=== PATIENT | female | born 1965 | race Caucasian/White ===

== ENCOUNTER 2023-06-09 10:05 | Inpatient (IN) ==
[2023-06-09 10:19] VITALS: BMI 43.4
--- NOTE | 2023-06-09 10:44 | ED.ABDFE ---
HPI Time Seen Time Seen by Provider: 06/09/23 10:44 PCP Primary Care Physician: ROMEO Lee Doctors Chief Complaint Comments: 58 y/o female presents for evaluation. Having abdominal pain over the past 3-4 days. + sharp, severe, located RUQ/RLQ, r adiates to rest of abdomen. + worse with palpation, moving. Nothing makes it better. Denies fever, URI symptoms, urinary issues. + nausea, no vomiting or diarrhea. Has decreased appetite. + h/o pancreatitis/cholecystitis a year ago. Does not drink alcohol. Still has her GB. Chief Complaint:: PATIENT C/O EPIGASTRIC, RUQ, AND UMBILICAL PAIN. PATIENT STATES SHE HAS ALSO HAD SOME NAUSEA ASSOCIATED WITH THE PAIN. PATIENT STATES SHE HAS HAD A HISTORY OF PANCREATITIS AND CHOLECYSISITIS IN THE PAST AND THE PAIN FEELS IF IT IS THE SAME ISSUE. COVID-19 Coronavirus risk:travel/contact w/high risk person: No Has patient experienced Coronavirus symptoms: No Reviewed Nurses Notes Review: Yes Source History Provided: Patient Mode of arrival Mode of Arrival: Wheelchair Timing Onset of Chief Complaint: 06/06/23 PMH PMH Past Medical History: Yes Past Medical History: Anxiety, Arthritis, Depression, Diabetes, Migraines, GERD, Headaches, Hypertension and Seizures Past Surgical History: Yes Surgical History: Appendectomy Past Surgical History Comment: TUBALIGATION Family History History of Family Medical Conditions: Yes Family Medical History: Cancer and Hypertension Social History Does patient currently use any type of tobacco product: No Does any household member use tobacco: No Alcohol Use: None Do you use any recreational Drugs:: No Lives With: Family Lives Where: Home Travel Risk Coronavirus risk:travel/contact w/high risk person: No Has patient experienced Coronavirus symptoms: No Infectious screening In the last 2 months have you had wt loss of >10#?: NO Have you had fever, night sweats or hemotysis?: No Have you traveled outside the country in the last 6 months?: No Isolation: Standard ROS Review of Systems Constitutional: Weakness Eyes: No Symptoms Reported ENTM: No Symptoms Reported Respiratoy: No Symptoms Reported Cardiovascular: No Symptoms Reported Gastrointestinal/Abdominal: See HPI Genitourinary: No Symptoms Reported Neurological: Weakness Musculoskeletal: No Symptoms Reported Integumentary: No Symptoms Reported All Other Systems: Reviewed and Negative PE Vital Signs Vitals: Vital Signs Temperature 99.0 F Pulse Rate 84 Pulse Rate 85 Pulse Rate 89 Pulse Rate 82 Pulse Rate 84 Pulse Rate 81 Pulse Rate 85 Pulse Rate 86 Pulse Rate 90 Pulse Rate 90 Pulse Rate 96 Pulse Rate 93 Pulse Rate 108 Respiratory Rate 20 Respiratory Rate 20 Respiratory Rate 20 Respiratory Rate 20 Blood Pressure 115/55 Blood Pressure 112/59 Blood Pressure 109/57 Blood Pressure 130/60 Blood Pressure 122/67 Blood Pressure 138/86 O2 Sat by Pulse Oximetry 98 O2 Sat by Pulse Oximetry 98 O2 Sat by Pulse Oximetry 100 O2 Sat by Pulse Oximetry 97 O2 Sat by Pulse Oximetry 98 O2 Sat by Pulse Oximetry 97 O2 Sat by Pulse Oximetry 98 O2 Sat by Pulse Oximetry 94 O2 Sat by Pulse Oximetry 91 O2 Sat by Pulse Oximetry 94 O2 Sat by Pulse Oximetry 97 O2 Sat by Pulse Oximetry 92 O2 Sat by Pulse Oximetry 96 General General Appearance: Alert and In No Apparent Distress Eyes Eye exam: PERRL and EOMI ENT ENT Exam: Mucous Membranes Moist Neck Neck Exam: Normal Inspection and Full ROM Respiratory Respiratory Exam: Normal Lung Sounds Bilat; negative Accessory Muscle Use or Respiratory Distress Cardiovascular Cardiovascular Exam: Regular Rate, Normal Rhythm and Normal Heart Sounds Abdominal Exam Abdominal Exam: Normal Bowel Sounds, Soft and Tenderness (all quadrants, with guarding, no clear rebound. ) Back Back Exam: Normal Inspection; negative (R) CVA Tenderness or (L) CVA Tenderness Extremeties Extremities Exam: Normal Inspection and Full ROM; negative Edema Neurologic Neurological Exam: Alert, Oriented X3 and CN II-XII Intact; negative Motor Sensory Deficit Skin Skin Exam: Warm and Dry COURSE Treatment Treatment: 58 y/o female with several days of abdominal pain, w/u initiated. Pt given IV fluids, IV toradol/zofran/dilaudid. 1254 - labs acceptable except for elevated lipase, 1,074. CT abd/pelvis shows inflammation of the pancreas, c/w pnacreatitis. GB looks normal on this CT. Pt still in pain, given additional IV analgesia, IV fluids. Recommend admission for further treatment. Discussed with Dr Pablo, executive director contract shop, accepts the admission. Added a lipid profile, + elevated chol/TGs, possible cause ? [facility] Labs Reviewed 06/09/23 10:58 06/09/23 10:58 Laboratory: WBC 13.0 X10^3/uL (3.6-10.0) H 06/09/23 10:58 RBC 4.82 X10^6/uL (3.5-5.4) 06/09/23 10:58 Hgb 14.2 g/dL (12.0-16.0) 06/09/23 10:58 Hct 42.8 % (36.0-47.0) 06/09/23 10:58 MCV 88.8 fL (80.0-100.0) 06/09/23 10:58 MCH 29.4 pg (27.0-34.0) 06/09/23 10:58 MCHC 33.1 g/dL (33.0-35.0) 06/09/23 10:58 RDW 13.4 % (11.6-16.5) 06/09/23 10:58 Plt Count 368 X10^3/uL (150.0-450.0) 06/09/23 10:58 MPV 8.2 fL (7.4-11.0) 06/09/23 10:58 Neut % (Auto) 68.8 % (42.0-75.0) 06/09/23 10:58 Lymph % (Auto) 21.4 % (21.0-51.0) 06/09/23 10:58 [place] % (Auto) 7.8 % (0.0-13.0) 06/09/23 10:58 Eos % (Auto) 1.1 % (0.9-2.9) 06/09/23 10:58 Baso % (Auto) 0.9 % (0.2-1.0) 06/09/23 10:58 Neut # (Auto) 8.9 x10^3/uL (2.2-4.8) H 06/09/23 10:58 Lymph # (Auto) 2.8 X10^3/uL (1.3-2.9) 06/09/23 10:58 [place] # (Auto) 1.0 x10^3/uL (0.3-0.8) H 06/09/23 10:58 Eos # (Auto) 0.1 x10^3/uL (0.0-0.2) 06/09/23 10:58 Baso # (Auto) 0.1 X10^3/uL (0.0-0.1) 06/09/23 10:58 Absolute Nucleated RBC 0.0 /100WBC 06/09/23 10:58 Sodium 140 mmol/L (136-145) 06/09/23 10:58 Corrected Sodium 141 mmol/L (136-145) 06/09/23 10:58 Potassium 3.3 mmol/L (3.5-5.1) L 06/09/23 10:58 Chloride 100 mmol/L (98-107) 06/09/23 10:58 Carbon Dioxide 32.2 mmol/L (21-32) H 06/09/23 10:58 BUN 20 mg/dL (7-18) H 06/09/23 10:58 Creatinine 1.70 mg/dL (0.55-1.02) H 06/09/23 10:58 Est GFR (MDRD) Af Amer 40 (>60) L 06/09/23 10:58 Est GFR (MDRD) Non-Af 33 (>60) L 06/09/23 10:58 Glucose 134 mg/dL (65-99) H 06/09/23 10:58 Calcium 11.3 mg/dL (8.5-10.1) H 06/09/23 10:58 Corrected Calcium TNP 06/09/23 10:58 Total Bilirubin 0.50 mg/dL (0.2-1.0) 06/09/23 10:58 AST 18 Units/L (15-37) 06/09/23 10:58 ALT 21 Units/L (12-78) 06/09/23 10:58 Alkaline Phosphatase 92 Units/L (46-116) 06/09/23 10:58 Total Protein 7.8 g/dL (6.4-8.2) 06/09/23 10:58 Albumin 3.7 g/dL (3.4-5.0) 06/09/23 10:58 Globulin 4.1 g/dL (2.5-4.5) 06/09/23 10:58 Albumin/Globulin Ratio 0.9 Ratio (1.1-2.1) L 06/09/23 10:58 Triglycerides 325 mg/dL (0-150) H 06/09/23 10:58 Cholesterol 294 mg/dL (0-200) H 06/09/23 10:58 LDL Cholesterol, Calc 190 mg/dL (0-100) H 06/09/23 10:58 HDL Cholesterol 39 mg/dL (40-60) L 06/09/23 10:58 Cholesterol/HDL Ratio 7.5 (0.0-5.0) H 06/09/23 10:58 Lipase 1074 Units/L (73-393) H 06/09/23 10:58 Opioid Opioid Risk Tool Age (Pranav box if 16-45): No History of Preadolescent Sexual Abuse: No Total: 0 Total Score Risk Category: Low Risk Copyright: Ulices SHELLEY predicting aberrant behaviors Discharge Plan Diagnosis Discharge Problem: Acute pancreatitis Discharge Plan Patient Disposition: ADMITTED INPATIENT Condition: Stable Health Concerns: Post Hospitalization: new medications and changes needed to prevent readmission or further decline. Pt educated and given instructions on all concerns. Plan of Treatment: Continue with present treatment and follow up plan. Pt is to keep follow up appointment as instructed and take medications as ordered. Orders to Discharge Patient Discharge Orders: Transfer (Routine); Ordered 06/09/23 Ordered By: Jonathon Brand Follow ups/Referrals Follow ups/Referrals: TYSHAWN ACOSTA [Primary Care Provider] - 3 days
[2023-06-09] MEDS ORDERED: TORADOL 30 MG VIAL IVP ONE (10:46)
[2023-06-09] MEDS ORDERED: ZOFRAN INJ 4 MG VIAL IVP ONE (10:46)
[2023-06-09] MEDS ORDERED: NS 1,000 ML IV 1,000 ML IV ONE ×2 (10:46→12:53)
[2023-06-09] MEDS ORDERED: DILAUDID INJ IVP ONE ×2 (10:50→12:53)
[2023-06-09] MEDS ORDERED: NS 1,000 ML IV 1,000 ML ONE (10:51)
[2023-06-09] MEDS ORDERED: ZOFRAN INJ 4 MG VIAL ONE (10:51)
[2023-06-09] MEDS ORDERED: TORADOL 30 MG VIAL ONE (10:51)
[2023-06-09 11:06] LABS: BASOPHILS # (AUTO) 0.1 X10^3/uL (0.0-0.1); BASOPHILS % (AUTO) 0.9 % (0.2-1.0); EOSINOPHILS # (AUTO) 0.1 x10^3/uL (0.0-0.2); EOSINOPHILS % (AUTO) 1.1 % (0.9-2.9); HEMATOCRIT 42.8 % (36.0-47.0); HEMOGLOBIN 14.2 g/dL (12.0-16.0); LYMPHOCYTES # (AUTO) 2.8 X10^3/uL (1.3-2.9); LYMPHOCYTES % (AUTO) 21.4 % (21.0-51.0); MEAN CORPUSCULAR HEMOGLOBIN 29.4 pg (27.0-34.0); MEAN CORPUSCULAR HGB CONC 33.1 g/dL (33.0-35.0); MEAN CORPUSCULAR VOLUME 88.8 fL (80.0-100.0); MEAN PLATELET VOLUME 8.2 fL (7.4-11.0); MONOCYTES % (AUTO) 7.8 % (0.0-13.0); NEUTROPHILS # (AUTO) 8.9 x10^3/uL (2.2-4.8); NEUTROPHILS % (AUTO) 68.8 % (42.0-75.0); PLATELET COUNT 368 X10^3/uL (150.0-450.0); RED BLOOD COUNT 4.82 X10^6/uL (3.5-5.4); RED CELL DISTRIBUTION WIDTH 13.4 % (11.6-16.5)
[2023-06-09 11:22] LABS: ALANINE AMINOTRANSFERASE 21 Units/L (12-78); ALBUMIN 3.7 g/dL (3.4-5.0); ALKALINE PHOSPHATASE 92 Units/L (46-116); ASPARTATE AMINO TRANSFERASE 18 Units/L (15-37); BLOOD UREA NITROGEN 20 mg/dL (7-18); CALCIUM 11.3 mg/dL (8.5-10.1); CARBON DIOXIDE 32.2 mmol/L (21-32); CHLORIDE 100 mmol/L (98-107); COR NA(FOR HYPERGLY) 141 mmol/L (136-145); GLUCOSE 134 mg/dL (65-99); LIPASE 1074 Units/L (73-393); POTASSIUM 3.3 mmol/L (3.5-5.1); SODIUM 140 mmol/L (136-145); TOTAL PROTEIN 7.8 g/dL (6.4-8.2); eGFR NON BLACK RACES 33 (>60)
[2023-06-09] MEDS ORDERED: OMNIPAQUE 350 mg/mL 100 mL BTL 100 ML ONE (11:35)
[2023-06-09] MEDS ORDERED: DILAUDID INJ ONE (12:07)
--- NOTE | 2023-06-09 12:16 | CT ---
HISTORYRight upper quadrant, right lower quadrant painSTUDYCT abdomen pelvis with contrastTechnique: Axial post-contrast images with coronal and sagittal reformats. Dose reduction procedures were used with mA/kv adjusted for body size.COMPARISONNoneFINDINGSThe lung bases are clear. The liver, spleen, adrenal glands, are within normal limits. The tail and body of the pancreas appear normal. However there is moderately severe inflammatory change in the peripancreatic region involving predominantly the head of the pancreas. Peripancreatic fluid is present. Findings are suggestive of developing acute pancreatitis predominantly involving the head at this time. Alternatively this could represent a severe duodenitis with secondary changes in the area of the head of the pancreas. Chemical correlation is recommended to assess for acute pancreatitis. There is no evidence for pseudocyst, abscess, or pancreatic necrosis. Kidneys are unobstructed and without stones or masses. No ureteral calculi are identified. Abdominal aorta demonstrates mild calcific atherosclerotic change but is otherwise normal. No intraperitoneal or retroperitoneal lymphadenopathy of significance identified. Appendix not identified. There are no secondary signs of appendicitis present. There are no findings suggestive enteritis, colitis, or diverticulitis. Examination of the pelvis demonstrated no evidence for pelvic masses, pelvic fluid, or pelvic lymphadenopathy. No definite bladder abnormality identified. No lytic or blastic skeletal lesions of significance are identified.IMPRESSIONModerately severe inflammation in the area of the pancreatic head and duodenal C loop most suggestive of developing acute pancreatitis predominately involving the pancreatic head as the remainder of the pancreas appears normal. Alternatively this could represent a primary duodenitis with secondary involvement of the pancreatic head. Chemical correlation for acute pancreatitis is recommended.Electronically signed by: EVA TEJEDA (Jun 09, 2023 12:15:29)
[2023-06-09 13:08] LABS: CHOL/HDL RATIO 7.5 (0.0-5.0)
[2023-06-09] MEDS ORDERED: ZOFRAN INJ 4 MG VIAL IVP PRN (14:27)
[2023-06-09] MEDS ORDERED: TORADOL 15 MG VIAL IVP PRN (14:27)
[2023-06-09] MEDS ORDERED: CONSULT PHARMACY - POTASSIUM & MAGNESIUM XX SCH (14:27)
[2023-06-09] MEDS ORDERED: D5 1/2 NS 1,000 ML 1,000 ML IV SCH (14:27)
[2023-06-09] MEDS: PEPCID 20 MG VIAL 20 MG in NS 50 ML IV 50 ML IV SCH (15:03)
[2023-06-09] MEDS: D5 1/2 NS + KCL 20 MEQ/L 1,000 ML IV SCH ×2 (16:00→23:02)
[2023-06-09 23:50] LABS: BILIRUBIN,URINE NEGATIVE (NEGATIVE); BLOOD/HEMOGLOBIN,URINE NEGATIVE (NEGATIVE); GLUCOSE, URINE NEGATIVE (NEGATIVE); KETONES,URINE NEGATIVE (NEGATIVE); LEUKOCYTE ESTERASE ,URINE 1+ (NEGATIVE); NITRITES,URINE NEGATIVE (NEGATIVE); PROTEIN,URINE 2+ (NEGATIVE); UROBILINOGEN,URINE NORMAL (NORMAL)
[2023-06-09 23:57] LABS: APPEARANCE,URINE SLIGHTLY HAZY (CLEAR); COLOR,URINE DARK YELLOW (YELLOW)
[2023-06-09 23:59] LABS: BACTERIA,URINE TRACE /HPF (NEGATIVE); HYALINE CASTS, URINE RARE /LPF (NEGATIVE); RBC,URINE 0-2 /HPF (0-3); SQUAMOUS EPITHELIAL CELL,UR MODERATE /HPF (NEGATIVE)
[2023-06-10 05:08] LABS: BASOPHILS % (AUTO) 0.5 % (0.2-1.0); EOSINOPHILS # (AUTO) 0.2 x10^3/uL (0.0-0.2); EOSINOPHILS % (AUTO) 2.2 % (0.9-2.9); HEMATOCRIT 35.4 % (36.0-47.0); LYMPHOCYTES % (AUTO) 21.2 % (21.0-51.0); MEAN CORPUSCULAR HGB CONC 33.7 g/dL (33.0-35.0); MEAN CORPUSCULAR VOLUME 89.1 fL (80.0-100.0); MEAN PLATELET VOLUME 8.3 fL (7.4-11.0); MONOCYTES # (AUTO) 0.9 x10^3/uL (0.3-0.8); MONOCYTES % (AUTO) 9.2 % (0.0-13.0); NEUTROPHILS # (AUTO) 6.3 x10^3/uL (2.2-4.8); NEUTROPHILS % (AUTO) 66.9 % (42.0-75.0); PLATELET COUNT 230 X10^3/uL (150.0-450.0); RED BLOOD COUNT 3.97 X10^6/uL (3.5-5.4); RED CELL DISTRIBUTION WIDTH 13.5 % (11.6-16.5); WHITE BLOOD COUNT 9.5 X10^3/uL (3.6-10.0)
[2023-06-10 05:21] LABS: ALBUMIN 2.9 g/dL (3.4-5.0); CALCIUM 9.2 mg/dL (8.5-10.1); CARBON DIOXIDE 31.5 mmol/L (21-32); COR CA(FOR HYPOALB) 10.1 mg/dL (8.5-10.1); CREATININE 1.75 mg/dL (0.55-1.02); MAGNESIUM 1.8 mg/dL (2.0-2.9); POTASSIUM 3.7 mmol/L (3.5-5.1); TOTAL PROTEIN 6.2 g/dL (6.4-8.2)
[2023-06-10 05:30] LABS: HEMOGLOBIN 11.9 g/dL (12.0-16.0)
[2023-06-10] MEDS: D5 1/2 NS + KCL 20 MEQ/L 1,000 ML IV SCH (05:48)
[2023-06-10] MEDS ORDERED: CONSULT PHARMACY - POTASSIUM & MAGNESIUM XX SCH ×2 (06:00→07:00)
[2023-06-10] MEDS: D5 1/2 NS + KCL 20 MEQ/L 1,000 ML with MAGNESIUM SULFATE 50% INJ VIAL 1 G IV SCH ×6 (08:53→16:10)
[2023-06-10] MEDS: PEPCID 20 MG VIAL 20 MG in NS 50 ML IV 50 ML IV SCH (08:53)
[2023-06-10] MEDS ORDERED: MAG-OX TAB PO SCH (09:00)
[2023-06-10] MEDS ORDERED: K-DUR TAB 20 MEQ PO SCH (09:00)
[2023-06-10] MEDS ORDERED: IMITREX TAB PO PRN (09:31)
[2023-06-10] MEDS: DILANTIN CAP 100 MG EXT REL PO SCH (10:12)
[2023-06-10] MEDS: TRICOR TAB 48 MG PO SCH (10:13)
--- NOTE | 2023-06-10 12:55 | DR.H&P ---
H&P - History & Physical for Day of: H&P Date: 06/09/23 - Chief Complaint Chief Complaint: ABDOMINAL PAIN - History of Present Illness History of Present Illness: IS A 58 YEAR OLD PATIENT OF IN [place], [place]. SHE PRESENTED TO THE ER WITH COMPLAINTS OF SEVERE ABDOMINAL PAIN. SHE REPORTS THAT ABDOMINAL PAIN STARTED 3-4 DAYS PRIOR TO ARRIVAL. SHE DESCRIBES ABDOMINAL PAIN SHARP, CONSTANT, AND DIFFUSE, BUT WORSE ON THE RIGHT SIDE. PAIN IS WORSE WITH PALPATION AND MOVING. NOTHING MAKES HER PAIN BETTER. SHE DENIES FEVER, URI SX, URINARY ISSUES, VOMITING, OR DIARRHEA. SHE DOES ADMIT TO NAUSEA. HER PMH INCLUDES: ANXIETY, ARTHRITIS, DEPRESSION, DM II, MIGRAINES, GERD, HEADACHES, HTN, SEIZURES, APPENDECTOMY, TUBALIGATION. SHE ALSO ADMITS TO A HX OF PANCREATITIS AND CHOLECYSTITIS IN THE PAST AND FEELS IF THE PAIN IS THE SAME THOSE EPISODES. SHE DENIES USE OF ALCOHOL. ON ARRIVAL TO THE ER, HER VITALS WERE: 99.0-108-20-96%-138/86. LABS WERE OBTAINED. WBC 13.0, RBC 4.82, HGB 14.2, HCT 42.8, PLT COUNT 368, SODIUM 140, POTASSIUM 3.3, CHLORIDE 100, CARBON DIOXIDE 32.2, BUN 20, CREATININE 1.70, GLUCOSE 134, CALCIUM 11.3, AST 18, ALT 21, ALK PHOS 92, TOTAL PROTEIN 7.8, ALBUMIN 3.7, GLOBULIN 4.1, TRIGLYCERIDES 325 , CHOLESTEROL 294, LDL 190, HDL 39, CHOLESTEROL/HDL RATIO 7.5, LIPASE 1074, MAGNESIUM 1.9. URINALYSIS WAS OBTAINED AND IS UNREMARKABLE. AN ABDOMEN/PELVIS CT WITH CONTRAST WAS OBTAINED AND REVEALED: Moderately severe inflammation in the area of the pancreatic head and duodenal C loop most suggestive of developing acute pancreatitis predominately involving the pancreatic head as the remainder of the pancreas appears normal. Alternatively this could represent a primary duodenitis with secondary involvement of the pancreatic head. Chemical correlation for acute pancreatitis is recommended. IN THE ER, SHE WAS GIVEN NORMAL SALINE BOLUS X 2 LITERS, TORADOL 30MG IV X 1 DOSE, ZOFRAN 4MG IV X 1 DOSE, DILAUDID 1MG IV X 2 DOSES. SHE WAS ADMITTED TO THE HOSPITAL FOR FURTHER EVALUATION AND TREATMENT OF ACUTE PANCREATITIS. SHE WAS STARTED ON D51/2 NS WITH POTASSIUM AND MAGNESIUM AT 125 ML/HR, PEPCID 20MG IV DAILY, ZOFRAN 4MG IV Q4H PRN, DILAUDID 1MG IV Q4H PRN, TORADOL 15MG IV Q6H PRN, TRICOR 48MG DAILY. HER HOME MEDICATIONS OF CARBAMAZEPINE, PHENYTOIN, AND SUMATRIPTAN WERE RESUMED. OTHERWISE, WE PLAN TO FOLLOW UP WITH AM LABS AND CONTINUE TO MONITOR. TIME SPENT ON CLINICAL ASSESSMENT, REVIEWING LABS AND IMAGING, DECISION MAKING, AND DOCUMENTATION GREATER THAN 75 MINUTES. - Past Medical History Past Medical History: Hypertension, Diabetes, Depression, Anxiety, Seizures, GERD, Arthritis, Migraines, Headaches - Past Surgical History Surgical History: Appendectomy - Family History Family Medical History: Cancer, Hypertension - Social History Does patient currently use any type of tobacco product: No Have you used tobacco products in the last 12 months: No Type of Tobacco Use: None Does any household member use tobacco: No Alcohol Use: None Drug Use: None - Review of Systems Constitutional: No Symptoms Reported Eyes: No Symptoms Reported ENT: No Symptoms Reported Respiratory: No Symptoms Reported Cardiovascular: No Symptoms Reported Gastrointestinal: Nausea, Abdominal Pain. denies: Diarrhea, Constipation Genitourinary: No Symptoms Reported Musculoskeletal: No Symptoms Reported Skin: No Symptoms Reported Neurological: No Symptoms Reported - Physical Exam Vital Signs: Vital Signs Temperature 97.8 F Temperature 98.5 F Pulse Rate [Right Brachial] 98 Pulse Rate [Right Brachial] 99 Respiratory Rate 20 Respiratory Rate 20 Blood Pressure [Right Arm] 140/76 Blood Pressure [Right Arm] 176/89 O2 Sat by Pulse Oximetry 99 O2 Sat by Pulse Oximetry 98 Oriented: Normal Eyes: Normal Ear: Normal Nose: Normal Respiratory: Clear Throughout Cardiovascular: Normal : Normal Auscultation: Bowel Sounds: Normal Palpation: Normal Tenderness: Diffuse Skin: Normal Musculoskeletal: Normal Psychiatric: Normal Mood Description: Calm Affect: Normal Speech Pattern: Clear - Assessment/Plan (1) Acute pancreatitis Qualifiers: Pancreatitis type: unspecified pancreatitis type Acute pancreatitis complication: unspecified Qualified Code(s): K85.90 - Acute pancreatitis without necrosis or infection, unspecified Status: Acute Plan: ADMIT, D51/2 NS WITH POTASSIUM AND MAGNESIUM AT 125 ML/HR, PEPCID 20MG IV DAILY, ZOFRAN 4MG IV Q4H PRN, DILAUDID 1MG IV Q4H PRN, TORADOL 15MG IV Q6H PRN, TRICOR 48MG DAILY. RESUME HOME MEDS (2) Dehydration Status: Acute (3) Seizure disorder Status: Acute - Allergies Allergies/Adverse Reactions: Allergies Allergy/AdvReac Type Severity Reaction Status Date / Time No Known Allergies Allergy Verified 06/09/23 10:48 - Medications Home Medications: Home Medications Medication Instructions Recorded Confirmed carbamazepine 200 mg tablet 200 mg PO TID 06/09/23 06/09/23 phenytoin sodium extended 100 mg 300 mg PO DAILY 06/09/23 06/09/23 capsule sumatriptan succinate 100 mg tablet 100 mg PO DAILY 06/09/23 06/09/23
[2023-06-10] MEDS ORDERED: D5 1/2 NS + KCL 20 MEQ/L 1,000 ML IV ONE (14:40)
[2023-06-10] MEDS ORDERED: MAGNESIUM SULFATE 50% INJ VIAL ONE (14:44)
[2023-06-10] MEDS: DILAUDID INJ IVP PRN ×2 (16:01→21:10)
[2023-06-11] MEDS: D5 1/2 NS + KCL 20 MEQ/L 1,000 ML with MAGNESIUM SULFATE 50% INJ VIAL 1 G IV SCH ×6 (00:30→08:40)
[2023-06-11 05:40] LABS: BASOPHILS % (AUTO) 0.3 % (0.2-1.0); EOSINOPHILS # (AUTO) 0.3 x10^3/uL (0.0-0.2); EOSINOPHILS % (AUTO) 3.5 % (0.9-2.9); HEMATOCRIT 31.4 % (36.0-47.0); HEMOGLOBIN 10.6 g/dL (12.0-16.0); LYMPHOCYTES % (AUTO) 26.5 % (21.0-51.0); MEAN CORPUSCULAR HEMOGLOBIN 30.1 pg (27.0-34.0); MEAN CORPUSCULAR HGB CONC 33.8 g/dL (33.0-35.0); MEAN PLATELET VOLUME 8.3 fL (7.4-11.0); MONOCYTES # (AUTO) 0.8 x10^3/uL (0.3-0.8); MONOCYTES % (AUTO) 10.4 % (0.0-13.0); NEUTROPHILS # (AUTO) 4.6 x10^3/uL (2.2-4.8); NEUTROPHILS % (AUTO) 59.3 % (42.0-75.0); PLATELET COUNT 215 X10^3/uL (150.0-450.0); RED BLOOD COUNT 3.53 X10^6/uL (3.5-5.4); RED CELL DISTRIBUTION WIDTH 13.3 % (11.6-16.5); WHITE BLOOD COUNT 7.7 X10^3/uL (3.6-10.0)
[2023-06-11 05:56] LABS: ALBUMIN 2.6 g/dL (3.4-5.0); CARBON DIOXIDE 29.8 mmol/L (21-32); COR CA(FOR HYPOALB) 9.1 mg/dL (8.5-10.1); CREATININE 1.25 mg/dL (0.55-1.02); POTASSIUM 3.6 mmol/L (3.5-5.1); TOTAL PROTEIN 5.9 g/dL (6.4-8.2)
[2023-06-11] MEDS ORDERED: CONSULT PHARMACY - POTASSIUM & MAGNESIUM XX SCH ×2 (07:00)
[2023-06-11 07:58] VITALS: BP 187/86; PULSE 87; TEMP 98.2; O2SAT 97
[2023-06-11] MEDS: PEPCID 20 MG VIAL 20 MG in NS 50 ML IV 50 ML IV SCH (08:39)
[2023-06-11] MEDS: DILANTIN CAP 100 MG EXT REL PO SCH (08:39)
[2023-06-11] MEDS: TRICOR TAB 48 MG PO SCH (08:39)
[2023-06-11] MEDS ORDERED: MAALOX or MYLANTA PO PRN (08:47)
[2023-06-11] MEDS: DILAUDID INJ IVP PRN (08:47)
[2023-06-11] MEDS ORDERED: PROTONIX INJ 40 MG VIAL IVP SCH (09:00)
[2023-06-11] MEDS ORDERED: K-DUR TAB 20 MEQ PO SCH (09:00)
[2023-06-11 09:39] VITALS: RESP 20
== END 2023-06-11 11:00 | disposition home or self-care (01) | DRG 440 ==
LOC: ER 10:05 → MED/SURG 14:02
PROVIDERS: ADMIT Internal Medicine; ATTEND Internal Medicine
DX: F41.9 Anxiety disorder, unspecified; R11.0 Nausea; K85.90 Acute pancreatitis without necrosis or infection, unspecified; K21.9 Gastro-esophageal reflux disease without esophagitis; G40.909 Epilepsy, unspecified, not intractable, without status epilepticus; E11.9 Type 2 diabetes mellitus without complications; E86.0 Dehydration